=== PATIENT | male | born 1945 | race Caucasian/White ===

== ENCOUNTER 2022-02-28 14:36 | Outpatient (CLI) | payer MEDICARE, BC, SELFPAY ==
[2022-02-28 21:37] LABS: Lab Add On Test New Spec Needed
== END 2022-02-28 14:37 | disposition home or self-care (01) ==
LOC: NFLDREF 14:37
PROVIDERS: PCP Family Medicine; Visit Provider Family Medicine
DX: E78.5 Hyperlipidemia, unspecified (principal); I10 Essential (primary) hypertension; Z12.5 Encounter for screening for malignant neoplasm of prostate
CPT/HCPCS: 80048; 80061; 84153; 84460

== ENCOUNTER 2022-08-22 11:54 | Outpatient (CLI) | payer MEDICARE, BC, SELFPAY | END 2022-08-22 11:55 | disposition home or self-care (01) | LOC: NFLDREF 11:55 | PROVIDERS: PCP Family Medicine; Visit Provider Family Medicine | DX: I10 Essential (primary) hypertension (principal) | CPT/HCPCS: 80048 ==

== ENCOUNTER 2022-09-12 09:28 | Outpatient (CLI) | payer MEDICARE, BC, SELFPAY | END 2022-09-12 09:29 | disposition home or self-care (01) | LOC: RAD 09:29 | PROVIDERS: PCP Family Medicine; Visit Provider Family Medicine | DX: I35.0 Nonrheumatic aortic (valve) stenosis (principal) | CPT/HCPCS: 93306 ==

== ENCOUNTER 2022-10-31 14:37 | Outpatient (CLI) | payer MEDICARE, BC, SELFPAY | END 2022-10-31 14:38 | disposition home or self-care (01) | LOC: NFLDREF 14:38 | PROVIDERS: PCP Family Medicine; Visit Provider Family Medicine | DX: I10 Essential (primary) hypertension (principal); E11.9 Type 2 diabetes mellitus without complications; E78.5 Hyperlipidemia, unspecified | CPT/HCPCS: 80048 ==

== ENCOUNTER 2022-12-07 18:20 | Emergency (ER) | payer MEDICARE, BC, SELFPAY ==
[2022-12-07 18:42] VITALS: BP 179/71; PULSE 95; RESP 16; TEMP 36.6; O2SAT 95; BMI 31.1
[2022-12-07 19:22] VITALS: BP 150/127; PULSE 54; RESP 16; O2SAT 97
--- NOTE | 2022-12-07 19:38 | ED_ITS ---
HPI - General Adult General Time Seen by Provider: 19:38 Date Seen: 12/07/22 Chief complaint: Skin/Abscess/Foreign Body Stated complaint: Open wound on led, diabetic Time Seen by Provider: 12/07/22 19:17 Source: patient, RN notes reviewed and old records reviewed Mode of arrival: ambulatory Limitations: no limitations History of Present Illness HPI narrative: This 77-year-old male is coming to the ER prior to going to his sleep study this evening. He has noticed a lesion on his left lower extremity, maybe is been there since . They do think there is a little red spot that is developing inferior. Had been using some Neosporin on it but his told him to stop. It is not really hurting but he does have neuropathy. It maybe itches sometimes. He has not felt any flu symptoms, no fevers or chills, is not aware of any history of any MRSA. Patient is diabetic. He does not have a history of prior wounds of his lower extremities. Review of chart shows Cr in the low 2 range most recently. Related Data Home Medications Medication Instructions Recorded Confirmed aspirin 81 mg capsule 81 mg PO QDAY 09/17/21 12/07/22 blood sugar diagnostic (Accu-Chek 09/17/21 10/31/22 Guide test strips) blood-glucose meter (Accu-Chek 09/17/21 10/31/22 Guide Glucose Meter) cholecalciferol (vitamin D3) 25 25 mcg PO QDAY 09/17/21 12/07/22 mcg (1,000 unit) capsule nitroglycerin 0.4 mg sublingual 0.4 mg sublingual ONCE 09/17/21 10/31/22 tablet (Nitrostat) insulin aspart U-100 100 unit/mL 15 unit subcut TID 08/22/22 12/07/22 (3 mL) subcutaneous pen (Novolog FlexPen U-100 Insulin aspart) Previous Rx's Medication Instructions Recorded flash glucose scanning reader #30 ea 12/12/21 (FreeStyle Henok 2 [place]) flash glucose sensor (FreeStyle #6 ea 08/22/22 Henok 2 Sensor kit) insulin glargine 100 unit/mL (3 30 unit (0.3 mL) subcut QDAY #15 mL 11/12/22 mL) subcutaneous pen (Lantus Solostar U-100 Insulin) cephalexin 500 mg tablet 500 mg PO TID #20 tabs 12/07/22 Allergies Allergy/AdvReac Type Severity Reaction Status Date / Time lisinopril Allergy Mild Cough Verified 12/07/22 18:44 Review of Systems Narrative: As per HPI. PFSH PFS Medical History Aortic stenosis ?I35.0 - Nonrheumatic aortic (valve) stenosis (ICD-10) [place] of foot ?L84 - Corns and callosities (ICD-10) Light-headedness ?R42 - Dizziness and giddiness (ICD-10) Diabetic peripheral neuropathy ?E11.42 - Type 2 diabetes mellitus with diabetic polyneuropathy (ICD-10) Type 2 diabetes mellitus ?E11.9 - Type 2 diabetes mellitus without complications (ICD-10) Hypertension ?I10 - Essential (primary) hypertension (ICD-10) Hyperlipidemia ?E78.5 - Hyperlipidemia, unspecified (ICD-10) Bilateral primary osteoarthritis of knee ?M17.0 - Bilateral primary osteoarthritis of knee (ICD-10) Personal history of colonic polyps ?Z86.010 - Personal history of colonic polyps (ICD-10) CKD (chronic kidney disease) stage 3, GFR 30-59 ml/min ?N18.30 - Chronic kidney disease, stage 3 unspecified (ICD-10) Erectile dysfunction ?N52.9 - Male erectile dysfunction, unspecified (ICD-10) Social History Narrative: . 3 children and 9 grandchildren. Gets care at the [place]. nonsmoker. Smoking Status: Never smoker How often do you have a drink containing alcohol: monthly or less AUDIT-C Alcohol total score: 1 Non-prescribed substance use: denies use Little interest or pleasure in doing things: not at all Feeling down, depressed, or hopeless: not at all Exam Const: Vital Signs, click to edit/add: Vital Signs - 24 hr 12/07/22 18:42 12/07/22 19:22 Temperature 97.8 F Pulse Rate [Left P ulse Oximeter] 95 54 L Respiratory Rate 16 16 Blood Pressure [Ri ght Upper Arm] 179/71 H 150/127 H Pulse Oximetry 95 97 Oxygen Delivery Me thod Room Air Room Air Very pleasant 77-year-old male ambulatory into the ED of his own accord. Able to speak in complete sentences. Face atraumatic. CV regular rate and rhythm, harsh systolic murmur consistent with his aortic stenosis, normal S1-S2, no S3- S4. He has left greater than right lower extremity edema with the left being about 2+ pitting pretibial early. Along the anterior aspect of the lower left extremity there is a purplish maybe about nickel sized area in the center that looks like it might eventually denuded to leave an ulceration. Around this there is an erythematous area and some satellite stippling that goes out. The seem to be petechial/vascular changes, they are not blanchable in the skin. Inferior to this there is a little small erythematous nodule that almost looks like it has a punctate white spot in the center, almost like maybe a satellite lesion. He does have some milky type fluid that I can express around the center wound. This was cultured. There is edema but not more so than the surrounding tissue. He is not tender when I palpate, no fluctuance. Documenting provider has reviewed patient's vital signs: yes Course Course ED Course: Reviewed with patient that I do wonder if he is starting to develop some venous stasis dermatitis with ulcer developing here. He does not remember if there might have been a bug bite or possibly some trauma, it is unclear. In any event, will culture this wound, cover with antibiotics until we have wound culture back. Will put a referral into the wound clinic for him. Vital Signs Vital signs: Initial Vital Signs Temperature 97.8 F 12/07/22 18:42 Temperature Source Temporal Artery Scan 12/07/22 18:42 Pulse Rate 95 12/07/22 18:42 Respiratory Rate 16 12/07/22 18:42 Blood Pressure 179/71 H 12/07/22 18:42 Blood Pressure Mean 107 H 12/07/22 18:42 Blood Pressure Position Sitting 12/07/22 18:42 Pulse Oximetry 95 12/07/22 18:42 Oxygen Delivery Method Room Air 12/07/22 18:42 Vital Signs Temperature 97.8 F 12/07/22 18:42 Pulse Rate 95 12/07/22 18:42 Respiratory Rate 16 12/07/22 18:42 Blood Pressure 179/71 H 12/07/22 18:42 Pulse Oximetry 95 12/07/22 18:42 Oxygen Delivery Method Room Air 12/07/22 18:42 Temperature 97.8 F 12/07/22 18:42 Pulse Rate 54 L 12/07/22 19:22 Respiratory Rate 16 12/07/22 19:22 Blood Pressure 150/127 H 12/07/22 19:22 Pulse Oximetry 97 12/07/22 19:22 Oxygen Delivery Method Room Air 12/07/22 19:22 Discharge Plan Discharge Clinical Impression: Wound of left lower extremity Patient Disposition: Home, Self-Care Condition: Stable Instructions: Stasis Dermatitis (ED), Acute Wounds (ED) Additional Instructions: We will start Keflex while we await the wound culture result. 1st dose was given tonight, prescription sent in for pharmacy for further dosing. Recommend light gauze dressing, may need to use a nonstick pad underneath the gauze. Wound referral has been sent, recommend that you get into wound clinic as soon as possible. I do believe that this wound likely represents of venous stasis ulcer that is developing. There certainly could be concomitant infection and we will cover for this. I also recommend that you follow-up with your primary care provider this week, if appropriate, increased management for swelling may help with this condition. Try to elevate this leg as much as possible when resting, do not recommend leaving it dependent for any length of time right now. If there are concerns for this wound worsening, infection that is increasing or other concerns, please seek re-evaluation. Activity Level: Activity as Tolerated Prescriptions: New cephalexin 500 mg tablet 500 mg PO TID Qty: 20 0RF No Action (DME) FreeStyle Henok 2 Sensor Kit See Rx Instructions .Route Qty: 6 1RF Rx Instructions: Change every 2 weeks insulin glargine [Lantus Solostar U-100 Insulin] 100 unit/mL (3 mL) insulin pen 30 unit subcut QDAY Qty: 15 1RF (DME) Accu-Chek Guide test strips Strip See Rx Instructions .Route Rx Instructions: As directed (DME) blood-glucose meter [Accu-Chek [place] Glucose Meter[place] [facility] [place] .Route Rx Instructions: As directed nitroglycerin [Nitrostat] 0.4 mg tablet, sublingual 0.4 mg sublingual ONCE Rx Instructions: as a single dose; administer 5-10 minutes before situation known to precipitate angina attack aspirin 81 mg capsule 81 mg PO QDAY cholecalciferol (vitamin D3) 25 mcg (1,000 unit) capsule 25 mcg PO QDAY (DME) FreeStyle Henok 2 [place] Misc See Rx Instructions .Route Qty: 30 1RF Rx Instructions: As directed insulin aspart U-100 [Novolog FlexPen U-100 Insulin] 100 unit/mL (3 mL) insulin pen 15 unit subcut TID Follow Up/Referrals: Dat Arredondo MD [Primary Care Provider] - Stand Alone Forms: MyHealth Info Instructions
[2022-12-07] MEDS: cephALEXin 500 MG CAPSULE PO (19:54)
--- NOTE | 2022-12-07 20:15 | PC.NURSE ---
DC accompanied by , referral to wound center given to patient. no further questions from patients or .
== END 2022-12-07 20:13 | disposition home or self-care (01) ==
LOC: ED 19:57
PROVIDERS: Emergency Provider Family Medicine; PCP Family Medicine
DX: S81.802A Unspecified open wound, left lower leg, initial encounter (principal)
CPT/HCPCS: 87070; 99283; A9270

== ENCOUNTER 2022-12-10 12:39 | Outpatient (CLI) | payer MEDICARE, BC, SELFPAY | END 2022-12-10 12:40 | disposition home or self-care (01) | LOC: WOUND 12:40 | PROVIDERS: PCP Family Medicine; Visit Provider Family Medicine | DX: I87.312 Chronic venous hypertension (idiopathic) with ulcer of left lower extremity (principal); L97.822 Non-pressure chronic ulcer of other part of left lower leg with fat layer exposed; E11.21 Type 2 diabetes mellitus with diabetic nephropathy; Z79.4 Long term (current) use of insulin | CPT/HCPCS: 11042; 99213 ==

== ENCOUNTER 2022-12-16 19:42 | Outpatient (CLI) | payer MEDICARE, BC, SELFPAY ==
--- NOTE | 2022-12-23 11:46 | W.PM.SLEEP ---
Sleep Study Details Details Interpreting Provider: Meeta Date of Sleep Study: 12/16/22 Sleep Study Details: STUDY TYPE:? Home unattended ? BMI:? 32.1 ORDERING PROVIDER:? Maria Elena INDICATION:? Concerns about sleep apnea ? SLEEP SUMMARY:? 420 minutes monitored RESPIRATORY SUMMARY:? AHI 8.9, supine 11.9, left lateral 7.8 Low oxygen 89 0.1% of study oxygen less than 90% Snoring 0.3% PERIODIC LIMB MOVEMENTS OF SLEEP:? Not recorded during home study CARDIAC:? Range 42-58, mean 45.5 IMPRESSION:? 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 Baseline low heart rate RECOMMENDATION: Further cardiac evaluation may be indicated due to low heart rate. Treatment options for the sleep apnea include CPAP AutoSet 4-17, dental appliance and/or airway expansion surge
== END 2022-12-16 19:43 | disposition home or self-care (01) ==
LOC: SLEEP 19:42
PROVIDERS: PCP Family Medicine; Visit Provider Family Medicine
DX: G47.33 Obstructive sleep apnea (adult) (pediatric) (principal)
CPT/HCPCS: 95806

== ENCOUNTER 2022-12-17 12:46 | Outpatient (CLI) | payer MEDICARE, BC, SELFPAY | END 2022-12-17 12:47 | disposition home or self-care (01) | LOC: WOUND 12:46 | PROVIDERS: PCP Family Medicine; Visit Provider Surgery | DX: I87.312 Chronic venous hypertension (idiopathic) with ulcer of left lower extremity (principal); L97.822 Non-pressure chronic ulcer of other part of left lower leg with fat layer exposed; E11.21 Type 2 diabetes mellitus with diabetic nephropathy; Z79.4 Long term (current) use of insulin | CPT/HCPCS: 99212 ==

== ENCOUNTER 2023-05-11 15:21 | Outpatient (CLI) | payer MEDICARE, BC, SELFPAY | END 2023-05-11 15:22 | disposition home or self-care (01) | LOC: NFLDREF 15:22 | PROVIDERS: PCP Family Medicine; Visit Provider Internal Medicine | DX: E11.42 Type 2 diabetes mellitus with diabetic polyneuropathy (principal); N18.30 Chronic kidney disease, stage 3 unspecified | CPT/HCPCS: 80048 ==

== ENCOUNTER 2023-09-23 13:22 | Outpatient (CLI) | payer MEDICARE, BC, SELFPAY ==
--- OUTSIDE RECORDS SUMMARY | 2023-09-23 13:29 | XMS_ITS | Continuity of Care Document ---
Author Name [facility] Organization [facility] Care Team Providers Care Windows Server Administrator Name Role Phone [facility] Unavailable Unavailable Problems Combined list of problems from Department of Defense and Veterans Affairs facilities. It does not include entries that were removed or entered in error. Problem Status Onset Date Problem Type Date of Resolution Comments Source Exposure to potentially hazardous substance ([facility] [id number]) Active 024 Condition May 21, 2023 Entered By: BEBA GALE Comment: [facility] Documentation Initiative [facility] Chronic kidney disease stage 3 Active Condition Feb 20, 2014 Entered By: MOISE MONGE Comment: creatinine 1.81 in 01/2014 [facility] Colonic Polyps Active Condition Feb 132011 Entered By: MOISE MONGE Comment: Last colonoscopy with no polyps: 2014 Entered By: MOISE MONGE Comment: colonoscopy 08/28: no polyps [facility] Coronary artery disease (SNOMED CT 69063668) Active Condition Feb 27, 2012 Entered By: MOISE MONGE Comment: coronary artery stent: 2008 [facility] Diabetes mellitus (SNOMED CT 06481008) Active Condition Feb 27, 2012 Entered By: MOISE MONGE Comment: Dx: 1982 [facility] Essential hypertension (SNOMED CT 22812536) Active Condition [facility] Hypercholesterolemia (SNOMED CT 18046904) Active Condition [facility] Obesity Active Condition [facility] Rheumatic Fever Inactive Condition 04/01/2017 Feb 27, 2012 Entered By: MOISE MONGE Comment: age 5: no rheumatic heart disease [facility] Diagnosis: ICD-10-CM Z00.01 Encounter for general adult medical exam w abnormal findings Active Diagnosis [facility] Diagnosis: ICD-10-CM H90.3 Sensorineural hearing loss, bilateral Active Diagnosis [facility] Diagnosis: ICD-10-CM E11.9 Type 2 diabetes mellitus without complications Active Diagnosis [facility] Medications Combined list of outpatient medications from Department of Defense and Veterans Affairs facilities.Medications provided include 1) outpatient medications from the last 15 months, and 2) patient-reported medications. Medication Details Route Status Patient Instructions Prescription Expires Prescription Number Last Dispense Date Ordering Provider Order Date Order Qty Source ASPIRIN 81MG TAB,EC ASPIRIN 81MG TAB,EC Non-VA TAKE ONE TABLET BY MOUTH EVERY DAY Feb 27, 2012 Non-[facility] Document ed by: SHY MONGE Document ed at: [facility] ORAL ACTIVE SHY MONGE 2011 [facility] ATORVASTATI N CA 20MG TAB ATORVAST ATIN CA 20MG TAB TAKE ONE TABLET BY MOUTH EVERY DAY May 29, 2022 90 Aug 26, 2022 [id number] Jun 28, [address] [facility] ORAL 08/26/2022 [id number] 3 Gwyn PAN P 2022 90 [facility] ATORVASTATI N CA 40MG TAB ATORVAST ATIN CA 40MG TAB Disconti nued TAKE ONE-HALF TABLET BY MOUTH EVERY DAY May 28, 2022 45 Aug 26, 2022 [id number] Jun 28, 2022 MAYELA PAN [facility] ORAL DISCONT INUED (EDIT) 08/26/2022 [id number] 3 Gwyn PAN P 2022 45 [facility] CHLORTHALID ONE 25MG TAB CHLORTHA LIDONE 25MG TAB TAKE ONE TABLET BY MOUTH EVERY MORNING FOR BLOOD PRESSURE Oct 01, 2022 90 Jan 02, 2023 [id number] K Oct 06, 2022 MAYELA PAN [facility] ORAL 01/02/2023 [id number] 3 Gwyn PAN P 2022 90 [facility] CHOLECALCIF DOC 25MCG (1,000UNIT) TAB CHOLECAL CIFEROL 25MCG (1,000UN IT) TAB Non-VA TAKE ONE TABLET BY MOUTH EVERY DAY Feb 27, 2012 Non-VA Document ed by: SHY MONGE Document ed at: [facility] ORAL ACTIVE SHY MONGE 2011 [facility] FISH OIL 1000MG (500MG DHA/EPA) CAP,ORAL FISH OIL 1000MG (500MG DHA/EPA) CAP,ORAL Non-VA TAKE 1 CAPSULE BY MOUTH EVERY DAY Feb 20, 2014 Non-VA Document ed by: SHY MONGE Document ed at: [facility] ORAL ACTIVE SHY MONGE 2013 [facility] INSULIN,ASP ART,HUMAN (EQV-NOVOLO G) 100 UNIT/ML,FLE XPEN,3ML INSULIN, ASPART,H UMAN (EQV-NOV OLOG) 100 UNIT/ML, FLEXPEN, 3ML INJECT 15 UNITS UNDER THE SKIN WITH EACH MEAL FOR DIABETES -INJECT IMMEDIAT CARMINA BEFORE MEAL -REFRIGE RATE FOR DIABETES Jun 25, 2022 15 Jun 26, 2023 [id number] May 29, 2023 MAYELA PAN [facility] SUBCUT ANEOUS 06/26/2023 [id number] 4 Gwyn PAN 2022 15 [facility] INSULIN,GLA RGINE,HUMAN 100 UNIT/ML INJ,SOLOSTA R,3ML INSULIN, GLARGINE ,HUMAN 100 UNIT/ML INJ,SOLO STAR,3ML Disconti nued INJECT 30 UNITS UNDER THE SKIN TWICE A DAY FOR DIABETES FOR DIABETES May 22, 2023 15 May 22, 2024 [id number] May 26, 2023 CASSIDY STUART [facility] SUBCUT ANEOUS DISCONT INUED (EDIT) 05/22/2024 [id number] 4 CASSIDY SILVEIRA 2023 15 [facility] INSULIN,GLA RGINE,HUMAN 100 UNIT/ML INJ,SOLOSTA R,3ML INSULIN, GLARGINE ,HUMAN 100 UNIT/ML INJ,SOLO STAR,3ML Disconti nued INJECT 20 UNITS UNDER THE SKIN TWICE A DAY FOR DIABETES FOR DIABETES Jun 25, 2022 15 Jun 26, 2023 [id number] Jun 30, 2022 MAYELA PAN [facility] SUBCUT ANEOUS DISCONT INUED (EDIT) 06/26/2023 [id number] Gwny PAN 2022 15 [facility] INSULIN,GLA RGINE-YFGN 100UNIT/ML INJ PEN,3ML INSULIN, GLARGINE -YFGN 100UNIT/ ML INJ PEN,3ML Active INJECT 30 UNITS UNDER THE SKIN TWICE A DAY FOR DIABETES FOR DIABETES May 26, 2023 15 May 26, 2024 [id number] May 26, 2023 CASSIDY STUART [facility] SUBCUT ANEOUS ACTIVE 05/26/2024 [id number] CASSIDY SILVEIRA 2023 15 [facility] MULTIVITAMI NS CAP/TAB MULTIVIT AMINS CAP/TAB Non-VA TAKE ONE TABLET BY MOUTH EVERY DAY Feb 27, 2012 Non-VA Document ed by: SHY MONGE Document ed at: [facility] ORAL ACTIVE SHY MONGE 2011 [facility] NITROGLYCER IN 0.4MG TAB,SUBLING UAL NITROGLY CERIN 0.4MG TAB,SUBL INGUAL Non-VA DISSOLVE ONE TABLET UNDER THE TONGUE PRN Feb 27, 2012 Non-VA Document ed by: SHY MONGE Document ed at: [facility] SUBLIN GUAL ACTIVE SHY MONGE 2011 [facility] Allergies, Adverse Reactions, Alerts Combined list of allergies from Department of Defense and Veterans Affairs facilities. It does not include entries that were removed or entered in error. Substance Category Reaction Severity Reaction type Status Date Reported Comments Source LISINOPRIL Propensity to adverse reactions to drug (finding) Cough active 2 [facility] Immunizations Combined list of available immunizations from the Department of Defense and Veterans Affairs facilities. Immunization Series Date Given Administered By Site Reaction Lot Number CVX Code Drug Panel Laminator Status Comments Source INFLUENZA, HIGH-DOSE, QUADRIVALENT 2021 197 complet ed [facility] INFLUENZA, UNSPECIFIED FORMULATION 2021 88 complet ed [facility] COVID-19 (PFIZER), MRNA, LNP-S, PF, 30 MCG/0.3 ML DOSE 3 2020 208 complet ed [facility] INFLUENZA, INJECTABLE, QUADRIVALENT, PRESERVATIVE FREE 2020 150 complet ed [facility] COVID-19 (PFIZER), MRNA, LNP-S, PF, 30 MCG/0.3 ML DOSE 2 2020 208 complet ed PFR; [id number]; 1 [facility] COVID-19 (PFIZER), MRNA, LNP-S, PF, 30 MCG/0.3 ML DOSE 1 2020 208 complet ed PFR; [id number]; 1 [facility] INFLUENZA, HIGH-DOSE, QUADRIVALENT 2019 197 complet ed [facility] INFLUENZA, UNSPECIFIED FORMULATION 2019 88 complet ed [facility] INFLUENZA, RECOMBINANT, QUADRIVALENT, INJECTABLE, PRESERVATIVE FREE 2018 185 complet ed [facility] INFLUENZA, HIGH DOSE SEASONAL 2017 135 complet ed [facility] INFLUENZA, HIGH DOSE SEASONAL 2016 135 complet ed [facility] INFLUENZA, HIGH DOSE SEASONAL 2016 135 complet ed [facility] INFLUENZA, HIGH DOSE SEASONAL 2015 135 complet ed [facility] INFLUENZA, SEASONAL, INJECTABLE 2015 141 complet ed [facility] PNEUMOCOCCAL CONJUGATE PCV 13 2015 133 complet ed [facility] PNEUMOCOCCAL CONJUGATE PCV 13 2014 133 complet ed [facility] INFLUENZA, HIGH DOSE SEASONAL 2014 135 complet ed [facility] PNEUMOCOCCAL POLYSACCHARID E PPV23 2014 33 complet ed [facility] INFLUENZA, HIGH DOSE SEASONAL 2014 135 complet ed [facility] INFLUENZA, HIGH DOSE SEASONAL 2013 135 complet ed [facility] INFLUENZA, UNSPECIFIED FORMULATION 2013 88 complet ed [facility] PNEUMOCOCCAL POLYSACCHARID E PPV23 2013 33 complet ed [facility] TDAP 2013 115 complet ed [facility] INFLUENZA, UNSPECIFIED FORMULATION 2012 88 complet ed [facility] PNEUMOCOCCAL POLYSACCHARID E PPV23 2012 33 complet ed [facility] INFLUENZA, SEASONAL, INJECTABLE 2011 141 complet ed [facility] INFLUENZA, UNSPECIFIED FORMULATION 2011 88 complet ed [facility] TD(ADULT) UNSPECIFIED FORMULATION 2011 139 complet ed [facility] TDAP 2011 115 complet ed [facility] INFLUENZA, SEASONAL, INJECTABLE 2010 141 complet ed [facility] INFLUENZA, SEASONAL, INJECTABLE 2009 141 complet ed [facility] HEP A, ADULT 2009 52 complet ed [facility] NOVEL INFLUENZA-H1N 1-09, ALL FORMULATIONS 2008 128 complet ed [facility] HEP A, ADULT 2008 52 complet ed [facility] ZOSTER LIVE 2008 121 complet ed [facility] INFLUENZA, SEASONAL, INJECTABLE 2007 141 complet ed [facility] ZOSTER LIVE 2007 121 complet ed [facility] INFLUENZA, SEASONAL, INJECTABLE 2006 141 complet ed [facility] PNEUMOCOCCAL POLYSACCHARID E PPV23 2006 33 complet ed [facility] TD (ADULT), 5 LF TETANUS TOXOID, PRESERVATIVE FREE, ADSORBED 2005 113 complet ed [facility] INFLUENZA, SEASONAL, INJECTABLE 2003 141 complet ed [facility] INFLUENZA, SEASONAL, INJECTABLE 2002 141 complet ed [facility] Results Combined list of recent chemistry, hematology and other laboratory results from Department of Defense and Veterans Affairs, ranging from 15 months to all on record, depending upon the facility. Order Name Results Value Reference Range Date Interpretation Specimen Comments Source BASIC METABOLIC PANEL+MG CREATININE [MASS/VOLUM E] IN SERUM OR PLASMA 2.1 mg/dL 0.7 - 1.2 07/05 H Specimen Type: PLASMA No comment entered. Ordering Provider: KAN BRAVO Report Released Date/Time: Jul 06, 2023 03:59 PM Reporting Lab: [facility] [address] Performing Lab: [facility] [address] [facility] BASIC METABOLIC PANEL+MG UREA NITROGEN [MASS/VOLUM E] IN SERUM OR PLASMA 38 mg/dL 8 - 26 07/05 H Specimen Type: PLASMA No comment entered. Ordering Provider: KAN BRAVO Report Released Date/Time: Jul 06, 2023 03:59 PM Reporting Lab: [facility] [address] Performing Lab: [facility] [address] [place] [facility] BASIC METABOLIC PANEL+MG GLUCOSE [MASS/VOLUM E] IN SERUM OR PLASMA 157 mg/dL 70 - 100 07/05 H Specimen Type: PLASMA No comment entered. Ordering Provider: KAN BRAVO Report Released Date/Time: Jul 06, 2023 03:59 PM Reporting Lab: [facility] [address] Performing Lab: [facility] [address] [place] [facility] BASIC METABOLIC PANEL+MG SODIUM [MOLES/VOLU ME] IN SERUM OR PLASMA 139 mmol/L 136 - 145 07/05 Specimen Type: PLASMA No comment entered. Ordering Provider: KAN BRAVO Report Released Date/Time: Jul 06, 2023 03:59 PM Reporting Lab: [facility] [address] Performing Lab: [facility] [address] [place] [facility] BASIC METABOLIC PANEL+MG POTASSIUM [MOLES/VOLU ME] IN SERUM OR PLASMA 5.1 mmol/L 3.5 - 5.1 07/05 Specimen Type: PLASMA No comment entered. Ordering Provider: KAN BRAVO R Report Released Date/Time: Jul 06, 2023 03:59 PM Reporting Lab: [facility] [address] Performing Lab: [facility] [address] [place] [facility] BASIC METABOLIC PANEL+MG CHLORIDE [MOLES/VOLU ME] IN SERUM OR PLASMA 106 mmol/L 98 - 107 07/05 Specimen Type: PLASMA No comment entered. Ordering Provider: KAN BRAVO R Report Released Date/Time: Jul 06, 2023 03:59 PM Reporting Lab: [facility] [address] Performing Lab: [facility] [address] [place] [facility] BASIC METABOLIC PANEL+MG CARBON DIOXIDE, TOTAL [MOLES/VOLU ME] IN SERUM OR PLASMA 27 mmol/L 22 - 29 07/05 Specimen Type: PLASMA No comment entered. Ordering Provider: KAN BRAVO Report Released Date/Time: Jul 06, 2023 03:59 PM Reporting Lab: [facility] [address] Performing Lab: [facility] [address] [place] [facility] BASIC METABOLIC PANEL+MG CALCIUM [MASS/VOLUM E] IN SERUM OR PLASMA 9.4 mg/dL 8.4 - 10.2 07/05 Specimen Type: PLASMA No comment entered. Ordering Provider: KAN BRAVO Report Released Date/Time: Jul 06, 2023 03:59 PM Reporting Lab: [facility] [address] Performing Lab: [facility] [address] [place] [facility] BASIC METABOLIC PANEL+MG MAGNESIUM [MASS/VOLUM E] IN SERUM OR PLASMA 1.9 mg/dL 1.6 - 2.6 07/05 Specimen Type: PLASMA No comment entered. Ordering Provider: KAN BRAVO Report Released Date/Time: Jul 06, 2023 03:59 PM Reporting Lab: [facility] [address] Performing Lab: [facility] [address] [place] [facility] BASIC METABOLIC PANEL+MG ANION GAP IN SERUM OR PLASMA 6 mmol/L 5 - 15 07/05 Specimen Type: PLASMA No comment entered. Ordering Provider: KAN BRAVO Report Released Date/Time: Jul 06, 2023 03:59 PM Reporting Lab: [facility] [address] Performing Lab: [facility] [address] [place] [facility] BASIC METABOLIC PANEL+MG GLOMERULAR FILTRATION RATE/1.73 SQ M.PREDICTED [VOLUME RATE/AREA] IN SERUM, PLASMA OR BLOOD BY CREATININE- BASED FORMULA (CKD-EPI 2020) 32 60 07/05 L Specimen Type: PLASMA No comment entered. Ordering Provider: KAN BRAVO Report Released Date/Time: Jul 06, 2023 03:59 PM Reporting Lab: [facility] [address] Performing Lab: [facility] [address] [place] [facility] HEMOGLOBI N A1C HEMOGLOBIN A1C/HEMOGLO BIN.TOTAL IN BLOOD 6.8 4.0 - 6.0 07/05 H Specimen Type: BLOOD Comment: Values obtained from A1C measurement s can vary. For typical A1C assays, a reported value of 7.0 could actually be between 6.7 and 7.3 if measured by a reference method. A reported value of 9.0 could actually be between 8.7 and 9.3. Ref: http://www. ngsp.org/[place] Pdata.asp Ordering Provider: KAN BRAVO Report Released Date/Time: Jul 06, 2023 03:59 PM Reporting Lab: [facility] [address] Performing Lab: [facility] [address] [facility] Vital Signs Combined list of inpatient and outpatient Vital Signs from Department of Defense and Veterans Affairs, ranging from 12 months to all on record, depending upon the facility. Vital Sign Value Date Comments Source Encounters Combined list of: 1) Encounters from Department of Veterans Affairs facilities going back up to thelast 18 months. 2) Encounters from the Department of Defense facilities going back up to 280 months. Location Location Details Encounter Type Encounter Number Reason For Visit Attending Provider ADM Date DC Date Status Disposition Source [facility] EAR IMPRESSION [id number] Diagnos is: ICD-10- CM H90.3 Sensori neural hearing loss, bilater al
DANDY PETERSON 06/07 [facility] Outpatient Encounter [id number] 06/25 [facility] OFFICE O/P EST LOW 20-29 MIN [id number] Diagnos is: ICD-10- CM E11.9 Type 2 diabete s mellitu s without complic ations< br/> Lauren KATZ 06/25 [facility] CONFORMITY EVALUATION [id number] Diagnos is: ICD-10- CM H90.3 Sensori neural hearing loss, bilater al
NICHOLASDANDY Pascal 07/23 [facility] [place] [facility] Outpatient Encounter [id number] 03/16 [place] [facility] [place] [facility] Outpatient Encounter [id number] 05/12 [place] [facility] [place] [facility] Outpatient Encounter [id number] 05/12 [place] [facility] [place] [facility] Outpatient Encounter [id number] 05/20 [facility] [place] [facility] OFFICE O/P EST HI 40 MIN [id number] Diagnos is: ICD-10- CM Z00.01 Encount er for general adult medical exam w abnorma l finding s
Dion MCLAUGHLIN 07/05 [facility] Social History Combined list of available smoking, tobacco, and other social history from Department of Defense and [facility] Affairs facilities. Social History Type Response Date Comment Sour e Tobacco smoking status ARIS ME-TOBACCO NEVER USED 07/06/2023 GERRI Ashley [facility] History of tobacco use ME-TOBACCO NEVER USED 06/25/2022 [facility] History of tobacco use ME-TOBACCO NEVER USED 06/11/2020 [facility] History of tobacco use ME-TOBACCO NEVER USED 05/31/2018 [facility] History of tobacco use LIFETIME NON-TOBA SALES ACCOUNT LEADER USER 04/01/2017 [facility] History of tobacco use LIFETIME NON-TOBA SALES ACCOUNT LEADER USER 03/05/2016 [facility] History of tobacco use LIFETIME NON-TOBA SALES ACCOUNT LEADER USER 02/26/2015 [facility] History of tobacco use LIFETIME NON-TOBA SALES ACCOUNT LEADER USER 02/20/2014 [facility] History of tobacco use LIFETIME NON-TOBA SALES ACCOUNT LEADER USER 02/27/2012 [facility]
--- OUTSIDE RECORDS SUMMARY | 2023-09-23 13:30 | XMS_ITS | Clinical Summary ---
Author Organization [facility] Address [place], [place] [address] Care Team Providers Care Vice President Of Customer Service Name Role Phone Dat Arredondo MD Primary Care Provider + Allergies Active Allergy Reactions Criticality Noted Date Comments Lisinopril Cough 10/22/2006 Tea Tree Oil Contact Dermatitis 06/17/2012 Blistering Medications Medication Sig Dispensed Refills Start Date End Date Status MULTIVITAMIN CAP 1 tab daily 0 Active ASPIRIN 81 MG TAB, DELAYED RELEASE take 1 tablet (81 mg) by oral route once daily 0 10/13/2007 Active cholecalciferol (VITAMIN D) 1,000 unit capsule Take 1 capsule by mouth. qod 0 05/02/2010 Active omega-3 fatty acids-vitamin E (FISH OIL) 1,000 mg capIndications:Mixed hyperlipidemia Take 1 capsule by mouth once daily. 60 capsule 0 11/05/2012 Active insulin syringe-needle u-100 (BD INSULIN SYRINGE UF) 1 mL 30 x 1/2Indications:Type II or unspecified type diabetes mellitus without mention of complication, not stated as uncontrolled For administering insulin at home. 4 box 5 08/05/2013 Active blood sugar diagnostic (BLOOD GLUCOSE TEST) stripIndications:Typ e II or unspecified type diabetes mellitus without mention of complication, not stated as uncontrolled Dispense test strips covered by the patient insurance. Test 1 times per day. 0 01/26/2014 Active HYDROcodone-acetamin ophen, 5-325 mg, (NORCO) per tablet Take 1-2 tablets by mouth every 4 hours if needed for Pain. Max acetaminophen dose: 4000mg in 24 hrs. 20 tablet 0 2014 Active simvastatin (ZOCOR) 40 mg tabletIndications:Mi xed hyperlipidemia Take 1 tablet by mouth once daily. 93 tablet 3 09/08/2014 Active nitroglycerin (NITROSTAT) 0.4 mg sublingual tabletIndications:Co ronary atherosclerosis of unspecified type of vessel, upper sioux or graft Place 1 tablet under the tongue every 5 minutes if needed. 1 Bottle 3 09/08/2014 Active insulin glargine (LANTUS) 100 unit/mL injectionIndications :Type II or unspecified type diabetes mellitus without mention of complication, not stated as uncontrolled Inject 35 Units subcutaneous 2 times daily at 8 AM and 8 PM. 10 Vial 11 09/08/2014 Active insulin aspart (NOVOLOG) 100 unit/mL injectionIndications :Type II or unspecified type diabetes mellitus without mention of complication, not stated as uncontrolled Inject 25 Units subcutaneous 3 times daily before meals. 40u in am, 50u at noon, 60u in the fatemeh 10 Vial 11 09/08/2014 Active losartan (COZAAR) 100 mg tabletIndications:Un specified essential hypertension Take 1 tablet by mouth once daily. 93 tablet 3 09/08/2014 Active chlorthalidone (HYGROTON) 25 mg tabletIndications:Un specified essential hypertension Take 1 tablet by mouth every morning. 93 tablet 3 09/08/2014 Active Active Problems Problem Noted Date Diagnosed Date Diabetes mellitus, type 2 01/26/2014 Erectile dysfunction 01/26/2014 Hyperlipidemia 01/26/2014 CKD (chronic kidney disease) stage 3, GFR 30-59 ml/min 11/05/2012 Obesity, unspecified 01/03/2011 Skin tags 05/02/2010 Personal history of colonic polyps 12/08/2008 Overview: Colonoscopy 11/2008 normal repeat in 5 years Colonoscopy 05/2014 polyp repeat in 5 years Coronary atherosclerosis of unspecified type of vessel, upper sioux or graft 01/14/2007 Overview: 01/13/2007 Successful stenting of the mid LAD with TAXUS HAIM recommend Plavix for 2 years Unspecified essential hypertension 10/22/2006 Resolved Problems Problem Noted Date Diagnosed Date Resolved Date Lipoma of other skin and subcutaneous tissue 1 11/05/2012 Morbid obesity 01/13/2007 01/03/2011 Family history of ischemic heart disease 01/13/2007 01/03/2011 Overview: Father DC Routine general medical exam ination at a health care facility 12/22/2006 09/19/2010 Overview: colonoscopy 07/2005 Recheck 3 yrs Mixed hyperlipidemia 12/22/2006 014 Impotence of organic origin 12/22/2006 01/26/2014 DIABETES 02/04/2002 01/26/2014 Overview: Dx 1981 Immunizations Name Administration Dates Next Due AMB Influenza, IIV3 (Age >=3 years)(Flu Clinic Only) 12/09/2011,01/04/2008 Amb Influenza, Inact (High-d ose) (Flu Clinic Only) 01/16/2014 Hepatitis A (Adult) 07/26/2009,08/04/2008 Influenza A (H1N1), Inactiva huy (Age >=3 Years) 03/08/2009 Influenza, IIV3 (Age >=3 years) 12/24/19 11,12/31/2009,12/22/2006,2005 Pneumococcal Poly,23-Valent (Pneumovax) 08/05/2013,12/22/2006 Td (Age >=7 Years) 07/15/2005 Tdap 08/05/2013 Zoster (Zostavax-ZVL, live) 07/13/2008 Family History Medical History Relation Name Comments Heart Disease Father Hypertension Father Cancer-breast Mother Psychiatric illness Sister 2 Schizoph shiloh Relation Name Status Comments Father Mother Sister 1 Alive Sister 2 Social History Tobacco Use Types Packs/Day Years Used Date Smoking Tobacco: Never Smokeless Tobacco: Never Tobacco Cessation:Counseling Given: Yes Alcohol Use Standard Drinks/Week Comments Yes 0 (1 standard drink = 0.6 oz pur e alcohol) 1 drink per month Social Connections Answer Date Recorded Frequency of Communication with Friends and Fami ly Not on file 03/16/2021 Financial Resource Strain Answer Date R ecorded Difficulty of Paying Living Expenses Not on file 03/16/2021 Difficulty of Paying Living Expenses Not on file 03/16/2021 Sex and Gender Information Value Date Recorded Sex Assigned at Not on file Gender Identity Not on file Sexual Orientation Not on file Obstetrics History Last Filed Vital Signs Vital Sign Reading Time Taken Comments Blood Pressure 120/72 10/01/2022 10:34 AM CDT Pulse 55 10/01/2022 10:34 AM CDT Temperature 36.7 ??C (98 ??F) 09/08/2014 9:26 AM CDT Respiratory Rate 16 01/14/2007 8:00 AM CDT Oxygen Saturation 96% 10/01/2022 10:34 AM CDT Inhaled Oxygen Concentration - - Weight 132.7 kg (292 lb 8 oz) 09/08/2014 9:26 AM CDT Height 190.5 cm (6' 3) 2014 3:12 PM [employer] Body Mass Index 36.56 2014 3:12 PM [employer] Plan of Treatment Health Maintenance Due Date Last Done Comments Depression screening for age 12+ 1959 BMI (ht and wt on same day) for age 18+ 1965 Hepatitis C screening for ag e 18-79 1965 Zoster (shingles) series for age 50+ (2 of 3) 09/07/2008 07/13/2008 Medicare Wellness for age 65+ 2012 Pneumococcal series for age 65+ (2 of 2 - PCV) 08/05/2014 08/05/2013, 12/22/2006 COVID-19 vaccine series (2 - 2022- season) 2022 01/31/2021 Tetanus booster 08/06/2023 08/05/2013, 07/15/2005 Influenza for age 65+ 11/15/2023 01/16/2014 , 12/09/2011, 12/23/2010, Additional history exists Tdap Completed 08/05/2013 Advance Directives * Full Code (Latest Code Status on File) Date Activated Date Inactivated Comments 01/13/2007 9:17 AM 01/14/2007 1:21 PM Care Teams Vice President Of Customer Service Relationship Specialty Start Date End Date Dat Arredondo MD [address] [place] [address] PCP - General Family Practice 12/20/20
== END 2023-09-23 13:23 | disposition home or self-care (01) ==
LOC: NFLDREF 13:27
PROVIDERS: PCP Family Medicine; Visit Provider Internal Medicine
DX: I10 Essential (primary) hypertension (principal); R53.1 Weakness
CPT/HCPCS: 80048

== ENCOUNTER 2023-12-21 08:30 | Outpatient (CLI) | payer MEDICARE, BC, SELFPAY ==
--- OUTSIDE RECORDS SUMMARY | 2023-12-21 08:34 | XMS_ITS | Encounter Summary ---
Author Name [facility] [place] [facility] [place] [facility] [place] Address [address] [place] [address] Care Team Providers Care Gearman Name Role Phone CASSIDY SILVEIRA Primary Care Provider Unavailab CLAY Garcia Unavailable Unavailable Insurance Providers: All historical and current Section Date Range: From patient's date of to the date document was created. This section includes the names of all active insurance providers for the patient. Insurance Provider Type of Coverage Plan Name Start of Policy Coverage End of Policy Coverage Group Number Member ID Insurance Provider's Telephone Number Policy Ramirez's Name Patient's Relationship to Policy Ramirez [facility] (WNR) MEDICARE ADVANTAGE [facility] ([facility]) Mar 16, 2021 [id number] [phone] Jonathan LARSON PATIENT [facility] (WNR) MEDICARE ADVANTAGE [facility] ([facility]) Mar 16, 2018 [id number] [phone] Jonathan LARSON PATIENT MEDICARE (WNR) MEDICARE (M) PART B Jun 14, 2017 PART B [id number] [phone] Jonathan LARSON [place] PATIENT MEDICARE (WNR) MEDICARE (M) PART A Apr 16, 2012 PART A [id number] [phone] Jonathan LARSON PATIENT Selected Encounter This section includes the information on record at [place] for the Encounter. Date/Time Encounter Type Encounter Description Reason Provider Source Jul 06, 2023 03:00 PM OFFICE O/P EST HI 40 MIN PRIMARY CARE/MEDICINE ICD-10-CM Z00.01 Encounter for general adult medical exam w abnormal findings ARNOLDOBETTYTIFFANY H Lauren Encounter Template Text not used by [place] Assessments - Encounter Diagnoses This section includes the primary and secondary diagnoses documented for the Encounter. Date/Time Primary/Secondary Diagnosis Diagnosis Name Provider Source Jul 06, 2023 04:52 PM PRIMARY Encounter for general adult medical exam w abnormal findings [facility] Jul 06, 2023 04:52 PM SECONDARY Athscl heart disease of [place] coronary artery w/o ang pctrs [facility] Jul 06, 2023 04:52 PM SECONDARY Chronic kidney disease, stage 3 unspecified [facility] Jul 06, 2023 04:52 PM SECONDARY Essential (primary) hypertension [facility] Jul 06, 2023 04:52 PM SECONDARY Nonrheumatic aortic (valve) stenosis [facility] Jul 06, 2023 04:52 PM SECONDARY Type 2 diabetes mellitus without complications [facility] Lab Results: +/- 30 days of the encounter This section includes the Chemistry and Hematology Lab Results on record with [place] for the patient. Radiology Reports and Pathology Reports are provided separately, in subsequent sections. Lab Results This section contains the Chemistry/Hematology Results that were resulted 30 days before or 30 daysafter the date of the Encounter. Date/Time Source Result Type Result - Unit Interpretation Reference Range Comment Jul 06, 2023 04:13 PM [facility] HEMOGLOBIN A1C Specimen Type: BLOOD Comment: Values obtained from A1C measurements can vary. For typical A1C assays, a reported value of 7.0 could actually be between 6.7 and 7.3 if measured by a reference method. A reported value of 9.0 could actually be between 8.7 and 9.3. Ref: http://www.ngs p.org/CAPdata. asp Ordering Provider: CLAY BRAVO Report Released Date/Time: Jul 06, 2023 03:59 PM Reporting Lab: [facility] [id number] Performing Lab: [facility] [id number] HEMOGLOBIN A1C 6.8 H 4.0-6.0 Jul 06, 2023 04:13 PM [facility] BASIC METABOLIC PANEL+MG Specimen Type: PLASMA No comment entered. Ordering Provider: CLAY BRAVO Report Released Date/Time: Jul 06, 2023 03:59 PM Reporting Lab: [facility] [address] [facility] [id number] Performing Lab: [facility] [address] [facility] [id number] CREATININE 2.1 mg/dL H 0.7-1.2 UREA NITROGEN 38 mg/dL H 8-26 GLUCOSE 157 mg/dL H 70-100 SODIUM 139 mmol/L 136-145 POTASSIUM 5.1 mmol/L 3.5-5.1 CHLORIDE 106 mmol/L 98-107 CO2 27 mmol/L 22-29 CALCIUM 9.4 mg/dL 8.4-10.2 MAGNESIUM 1.9 mg/dL 1.6-2.6 ANION GAP 6 mmol/L 5-15 .CREAT EGFR(CKD-EPI ) 32 L >60 Vital Signs: All taken on the encounter date This section contains inpatient and outpatient Vital Signs collected on the date of the Encounter. Date/Time Temperature Pulse Blood Pressure Respiratory Rate SP02 Pain Height Weight Body Mass Index Source Jul 06, 2023 04:01 PM 97.6 55 142/70 16 96 0 76 254 31 [facility] Jul 06, 2023 03:31 PM 52 154/77 92 [facility] Social History: Smoking Status (Most current) and Tobacco Use (All prior to encounter date) This section includes the most current, and the historical, smoking and tobacco- related health factors from the [place] facility where the Encounter took place. Current Smoking Status This section includes the most current smoking, or tobacco-related health factor, from the [place] facility where the Encounter took place. Date/Time Current Smoking Status Comment Yo barnes Jul 06, 2023 03:00 PM VA-TOBACCO NEVER USED [facility] Tobacco Use History This section includes a history of the smoking, or tobacco-related health factors, that were collected on or before the date of the Encounter. The data comes from the [place] facility where the Encounter took place. Date/Time Smoking Status/Tobacco Use Comment Brianne bishop Jun 25, 2022 02:00 PM VA-TOBACCO NEVER USED [facility] Jun 11, 2020 09:30 AM VA-TOBACCO NEVER USED [facility] May 31, 2018 10:03 AM VA-TOBACCO NEVER USED [facility] Apr 01, 2017 07:54 AM LIFETIME NON-TOBACCO USER [facility] Mar 05, 2016 03:11 PM LIFETIME NON-TOBACCO USER [facility] Feb 26, 2015 09:57 AM LIFETIME NON-TOBACCO USER [facility] Feb 20, 2014 09:52 AM LIFETIME NON-TOBACCO USER [facility] Feb 27, 2012 08:53 AM LIFETIME NON-TOBACCO USER [facility] Encounter Notes: All associated encounter notes This section contains the clinical notes associated to the Encounter. Date/Time Encounter Note(s) Provider Source Jul 06, 2023 04:01 PM INTERNAL MEDICINE OUTPATIENT NOTE: LOCAL TITLE: MEDICINE CLINIC NURSING NOTE STANDARD TITLE: INTERNAL MEDICINE OUTPATIENT NOTE DATE OF NOTE: JUL 06, 2023@16:01 ENTRY DATE: JUL 06, 2023@16:02:09 AUTHOR: DAVIS AN COSIGNER: URGENCY: STATUS: COMPLETED TYPE OF VISIT: Appointment Check In Type of appointment: In-person appointment REASON FOR VISIT: annual ALLERGIES: LISINOPRIL (Feb 27, 2012) VITAL SIGNS: Blood Pressure: 142/70 (07/06/2023 16:01) rechecked Pulse: 55 (07/06/2023 16:01) Respiration: 16 (07/06/2023 16:01) Temperature: 97.6 F [36.4 C] (07/06/2023 16:01) Weight: 254 lb [115.21 kg] (07/06/2023 16:01) Height: 76 in [193.0 cm] (07/06/2023 16:01) BMI: 31.0 O2 Sat: 96% (07/06/2023 16:01) Pain: 0 (07/06/2023 16:01) PAIN SCREEN: Patient is not having significant pain that they wish to discuss with their provider today. MEDICATION Over the Counter/Herbal Medications: The patient denies taking any outside medications or herbals. Suicide Screen: C-SSRS Screening [place] Suicide Severity Rating Scale (C-SSRS) screener 1. Over the past month, have you wished you were or wished you could go to sleep and not wake up? No 2. Over the past month, have you had any actual thoughts of killing yourself? No 3. Over the past month, have you been thinking about how you might do this? Response not required due to responses to other questions. 4. Over the past month, have you had these thoughts and had some intention of acting on them? Response not required due to responses to other questions. 5. Over the past month, have you started to work out or worked out the details of how to kill yourself? Response not required due to responses to other questions. 6. If yes, at any time in the past month did you intend to carry out this plan? Response not required due to responses to other questions. 7. In your lifetime, have you ever done anything, started to do anything, or prepared to do anything to end your life (for example, collected pills, obtained a gun, gave away valuables, went to the roof but didn't jump)? No 8. If YES, was this within the past 3 months? Response not required due to responses to other questions. Influenza Immunization: The patient declines to receive the recommended dose of seasonal influenza vaccine. Immunization: INFLUENZA, UNSPECIFIED FORMULATION Refusal Reason: PATIENT DECISION Patient refuses all immunization(s) in the FLU group Date Documented: 07/06/23 16:03 Depression Screening: Perform PHQ-2 A PHQ-2 screen was performed. The score was 0 which is a negative screen for depression. Over the past two weeks, how often have you been bothered by the following problems? 1. Little interest or pleasure in doing things Not at all 2. Feeling down, depressed, or hopeless Not at all Alcohol Use Screen (AUDIT-C): Alcohol Screen: SCREEN FOR ALCOHOL (AUDIT-C) An alcohol screening test (AUDIT-C) was negative (score=0). 1. How often did you have a drink containing alcohol in the past year? Consider a drink to be a 12 ounce can or bottle of regular beer, 8 ounces of malt liquor, a 5 ounce glass of table wine, or a 1.5 ounce shot of liquor (like scotch, gin, or vodka). Never 2. How many drinks containing alcohol did you have on a typical day when you were drinking in the past year? Response not required due to responses to other questions. 3. How often did you have six or more drinks on one occasion in the past year? Response not required due to responses to other questions. Tobacco Use Screening: The patient has never used tobacco. Homelessness/Food Insecurity Screen: In the past 2 months, have you been living in stable housing that you own, rent, or stay in as part of a household? Yes - Living in stable housing. Are you worried or concerned that in the next 2 months you may NOT have stable housing that you own, rent, or stay in as part of a household? No - Not worried about housing near future The [place] reports the following: Within the past 12 months, you worried whether your food would run out before you got money to buy more. Never true Within the past 12 months, the food you bought just didn't last and you didn't have money to get more. Never true Food Assistance Programs [facility] Food Assistance Programs [facility] Td / Tdap Immunization: The patient declines to receive the recommended dose of Td/Tdap vaccine. Immunization: TD(ADULT) UNSPECIFIED FORMULATION Refusal Reason: PATIENT DECISION Patient refuses all immunization(s) in the Td group Date Documented: 07/06/23 16:04 Herpes Zoster (Shingles) Vaccine: The patient declines to receive the recommended dose of zoster (shingles) vaccine. Immunization: ZOSTER RECOMBINANT Refusal Reason: PATIENT DECISION Patient refuses all immunization(s) in the ZOSTER group Date Documented: 07/06/23 16:04 glenis AN LPN Signed: 07/06/2023 16:05 DAVIS AN [facility] Jul 06, 2023 03:21 PM INTERNAL MEDICINE NOTE: LOCAL TITLE: MEDICINE CLINIC NOTE STANDARD TITLE: INTERNAL MEDICINE NOTE DATE OF NOTE: JUL 06, 2023@15:21 ENTRY DATE: JUL 06, 2023@15:21:33 AUTHOR: CLAY BRAVO EXP COSIGNER: URGENCY: STATUS: COMPLETED MEDICINE CLINIC NOTE Has ADDENDA RODRIGUE LARSON is a 78 year old MALE with the following chief complaint: annual exam, co-managed Nurse's Note Reviewed. Assessment and Plan: Mr. Larson is a 78 year old with a PMH significant for DM, HTN, HLD, CAD, aortic stenosis, and CKD (baseline creatinine 2) that presents to the clinic today for an annual exam. He is a co-managed and gets his primary care at [facility]. He also follows with cardiology at [facility] and podiatry at the [facility]. Discussed the importance of good BP control, statin therapy and follow up with PCP and specialty providers. # HTN BP in clinic 154/77 above goal <130/80mmHg. reports he takes his blood pressures at home and readings typical 120s-130s systolic. He is not currently on an antihypertensive. Discussed the importance of monitoring home blood pressure and following up with primary care provider if BP remains above goal. - Follow up with primary care provider in 2 weeks as scheduled - Continue to monitor home BP - Discussed when to seek care - Dash diet pattern, physical activity as tolerated, stress reduction # CAD # HLD reports he is no longer taking atorvastatin due to symptoms of muscle fatigue and low heart rate. States this was a decision made with his primary care provider. Discussed the risk of CVA or PA with history of CAD with PCI and DM, verbalizes understanding. - Consider high intensity statin - Encourage good BP control and to follow up with PCP and roll grinder operator - ASA 81 mg daily # CKD Baseline creatinine 2. Labs ordered today. - BMP - Avoid NSAIDs, encourage adequate hydration - Focus on good BP and blood sugar control # Moderate aortic stenosis Repeat echo completed 09/12/22 with EF 70-75%, and moderate aortic stenosis. denies any angina, dyspnea, or syncope. Per patient report roll grinder operator recommending to continue to monitor. - Follow up with roll grinder operator - Advised when to seek care # T2DM with nephropathy [place] reports last a1c 7% with his PCP. Continues to monitor blood sugar with continuous glucose monitor. Fasting blood sugars 130-140. Currently using 15 units of aspart TID and 30 units of glargine BID. PAVE exam completed in clinic today with severe neuropathy and 0% of sites detected. is following with outside pl sql developer. Advised on daily foot cares, and annual eye exam. - Continue with current regimen - Eye exam: completed 2 weeks ago - PAVE: completed today - A1c ordered - Offered diabetic footwear - declines - Not on statin or lenard/arb: consider # Health maintenance Recommend discussing follow up colonoscopy based on previous results with PCP. Offered immunizations (shingles, COVID, flu and TPAD) declined. Follow up for annual exam in one year or sooner as needed. HPI/ROS: RODRIGUE LARSON is a 78 year old with a PMH significant for DM, HTN, HLD, CAD, aortic stenosis, and CKD (baseline creatinine 2) that presents to the clinic today for an annual exam. He is a co-managed patient who sees a primary care provider at [facility]. Takes blood pressures at home typical readings 120s-130s/60s-70s. Heart rate typically 50s. Was taken off chlorthalidone previously due to symptomatic bradycardia. Saw a roll grinder operator last year at [facility] and patient reports they just plan to monitor his aortic stenosis. States his primary care physician in [place] took him off his statin medication and his symptoms of pain and low heart rate has improved. He is aware of the risks being off of his statin medication. Has a continuous glucose monitor, fasting about 130-140. Reports his last a1c about 4-5 months ago was 7. Injects 15 units with meals. And long acting 30 units twice per day. No open wounds on his feet. Does not wear diabetic foot wear or compression stockings. Last saw eye doctor two weeks ago. 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 10 point review of systems negative unless otherwise noted in the HPI. Past medical history/Active Problems: Active problems - Computerized Problem List is the source for the followin. Diabetes mellitus (SNOMED CT 97868122) - Dx: 1982 2. Obesity 3. Essential hypertension (SNOMED CT 23021394) 4. Hypercholesterolemia (SNOMED CT 11273532) 5. Coronary Artery Disease - coronary artery stent: 2008 6. Colonic Polyps - Last colonoscopy with no polyps: 2008 - colonoscopy 08/28: no polyps 7. Chronic kidney disease stage 3 - creatinine 1.81 in 01/2014 8. Exposure to potentially hazardous substance ([facility] [id number]) - Entered through [facility]/VISN23 [facility] Documentation Initiative EXAM: VS: Ht:76 in [193.0 cm] (07/06/2023 16:01) BMI/Wt:31.0/254 lb. [115.21 kg] (07/06/2023 16:01) RR:16 (07/06/2023 16:) Temp:97.6 F [36.4 C] (07/06/2023 16:01) HR:55 (07/06/2023 16:) BP:142/70 (07/06/2023 16:) General: alert, well appearing and in no apparent distress HEENT: Normocephalic. EOMI, PERRL. Neck supple, thyroid symmetric without nodules or masses Cardiovascular: Grade 3 systolic crescendo decrescendo murmur heard throughout Pulmonary: CTAB, no wheezes, rales or rhonchi and normal respiratory effort Abdomen: soft, nondistended, nontender and no aortic, renal or iliac artery bruits noted Neurologic: normal speech, alert and oriented x 4. Gait steady. Monofilament with 0% sites detected of bilateral feet. Extremities: No peripheral edema. Skin: Warm and dry. No open wounds or lesions Psychiatric: affect/mood normal, cooperative, normal judgment/insight Data/Labs: Pending Patient staffed with Dr. Gan Portions of this chart were created using voice recognition software. Please excuse any typographical errors and word substitutions. Education on Treatment Plan: Patient indicates readiness to learn, verbalizes understanding, agreement and satisfaction with the treatment plan. Denies further questions. Patient indicates readiness to learn and has been instructed on action, dose, frequency, and side effects of medications. Patient verbalizes understanding. The medication list above was reviewed with the patient at today's visit. I have indicated discrepancies under each medication that is not being taken as prescribed. I have updated the medicines under the med tab as appropriate. PAVE Foot Check: A complete foot check was completed at this encounter. VISUAL INSPECTION: Includes inspection for skin breaks, deformity, erythema, trauma, pallor on elevation, dependent rubor, nail deformities, extensive callus and pitting edema. Visual exam results: Abnormal Observations: Hammertoes PEDAL PULSES: Includes palpation of dorsalis and posterior tibial pulses and signs/symptoms of vascular compromise like pain, pallor, parasthesia or paralysis. Present (even if diminished) SENSORY CHECK: Includes 10 gram Monofilament ([place]) test of sensation. Intact (Greater than or equal to 80% of sites checked) Abnormal (Less than 80% of sites checked): Abnormal (decreased or absent sensation to monofilament): Comment: 0% detected HIGH-RISK: HIGH RISK INFORMATION PROVIDED: 1. Advised patient that extra depth footwear with soft molded inserts and braces may be required. 2. Advised patient not to walk barefoot. 3. Explained the importance of daily foot checks. 4. Stressed the importance of daily foot hygiene, including bathing, complete drying and thorough inspection for changes. The patient verbalized understanding and was offered a detailed handout on diabetic foot care. Patient being seen by an outside footwear factory worker Diabetic Eye Screening: Prior exam/eye care done elsewhere within past year (or within past two years if negative history of retinopathy): Diabetic retinal exam result: Unknown results of prior exam for Retinopathy Date: 2023 ? Exact date is unknown Medication Reconciliation: Education Evaluations *Was medication education provided for NEW medications or CHANGES to medications? (including medication name, dose, route, reason for use, and potential side effects). Yes. Verbal education was provided to patient/caregiver and patient/caregiver verbalized understanding. TERATOGENIC MED & CONTRACEPTION REVIEW (Optional)... MEDICATION RECONCILIATION Review Done: The medication list shown below was verified for accuracy and it includes all pending medications/active medications/all medications or discontinued within the last 90 days/all remote medications and non-VA medications. If a given category (i.e. remote meds) is not shown, that means that a patient doesn't have a medication(s) in that category. Allergies listed below were also reviewed/updated for accuracy. Allergies/ADR from [facility] may not display in CPRS. Use JLV MRT5 - Allergies/ADRs FACILITY ALLERGY/ADR -------- No Remote Allergy/ADR Data available for this patient [facility] LISINOPRIL Active and Recently Outpatient Medications (including Supplies): Issue Date Status Last Fill Active Outpatient Medications Refills Expiration 1) INSULIN,GLARGINE-YFGN 100UNIT/ML PEN 3ML ACTIVE Issu:05-26-23 Qty: 15 for 75 days Sig: INJECT 30 Refills: 3 Last:05-26-23 UNITS UNDER THE SKIN TWICE A DAY FOR Expr:05-26-24 DIABETES 2) NEEDLE,PEN 31G,8MM Qty: 200 for 40 days ACTIVE Issu:07-23-22 Sig: USE 1 NEEDLE DIRECTED *DISPOSE Refills: 9 Last:06-26-23 OF IN A HARD-PLASTIC CONTAINER WITH A Expr:07-24-23 SCREW-ON LID CONTACT GARBAGE HAULER FOR PROPER DISPOSAL Issue Date Status Last Fill Inactive Outpatient Medications Refills Expiration 1) INSULIN,ASPART(EQV-NOVLG)100UN/ ML FLXPEN Issu:06-25-22 Qty: 15 for 90 days Sig: INJECT 15 Refills: 2 Last:05-29-23 UNITS UNDER THE SKIN WITH EACH MEAL Expr:06-26-23 FOR DIABETES -INJECT IMMEDIATELY BEFORE MEAL -REFRIGERATE 2) INSULIN,GLARGINE 100 UNT/ML 3ML SOLOSTAR DISCONTINUED Issu:05-22-23 Qty: 15 for 75 days Sig: INJECT 30 (EDIT) Last:05-26-23 UNITS UNDER THE SKIN TWICE A DAY FOR Refills: 3 Expr:05-22-24 DIABETES 3) INSULIN,GLARGINE 100 UNT/ML 3ML SOLOSTAR DISCONTINUED Issu:06-25-22 Qty: 15 for 90 days Sig: INJECT 20 (EDIT) Last:06-30-22 UNITS UNDER THE SKIN TWICE A DAY FOR Refills: 3 Expr:06-26-23 DIABETES 4) INSULIN,GLARGINE 100 UNT/ML 3ML SOLOSTAR DISCONTINUED Issu:04-09-22 Qty: 20 for 60 days Sig: INJECT 40 Refills: 3 Last:04-09-22 UNITS UNDER THE SKIN TWICE A DAY FOR Expr:04-10-23 DIABETES Start Date Active Non-VA Medications Refills Expiration 1) Non-VA ASPIRIN 81MG EC TAB Si MG ACTIVE MOUTH EVERY DAY 2) Non-VA CHOLECALCIF 25MCG (D3-1,000UNIT) ACTIVE TAB SiUNIT MOUTH EVERY DAY 3) Non-VA FISH OIL 1000MG (500MG DHA/EPA) ACTIVE CAP SiMG MOUTH EVERY DAY 4) Non-VA MULTIVITAMIN CAP/TAB Si ACTIVE TABLET MOUTH EVERY DAY 5) Non-VA NITROGLYCERIN 0.4MG SL TAB Sig: ACTIVE 0.4 MG UNDER THE TONGUE NEEDED 11 Total Medications /elvie/ CLAY BRAVO NURSE PRACTITIONER RESIDENT Signed: 07/06/2023 16:52 Receipt Acknowledged By: 07/07/2023 15:12 /elvie/ Tiffany Gan MD Physician 07/07/2023 ADDENDUM STATUS: COMPLETED I have reviewed this patient's history (obtained by nurse practitioner [employer] trainee) and when appropriate, pertinent physical examination (obtained by [employer] trainee), laboratory, and radiologic or other diagnostic tests with the [employer] trainee evaluating this patient. I agree with the treatment plan as outlined. This plan was reviewed with the [employer] trainee on the date of the [employer] trainee's note. /elvie/ Tiffany Gan MD Physician Signed: 07/07/2023 15:12 CLAY BRAVO [facility]
--- OUTSIDE RECORDS SUMMARY | 2023-12-21 08:34 | XMS_ITS | Continuity of Care Document ---
Author Name [facility] Organization [facility] Care Team Providers Care Supply Chain Design Manager Name Role Phone [facility] Unavailable Unavailable Problems Combined list of problems from Department of Defense and Veterans Affairs facilities. It does not include entries that were removed or entered in error. Problem Status Onset Date Problem Type Date of Resolution Comments Source Exposure to potentially hazardous substance ([facility] [id number]) Active 024 Condition May 21, 2023 Entered By: BEBA GALE Comment: [facility] [facility] Documentation Initiative [facility] Chronic kidney disease stage 3 Active Condition Feb 20, 2014 Entered By: MOISE MONGE Comment: creatinine 1.81 in 01/2014 [facility] Colonic Polyps Active Condition Feb 132011 Entered By: MOISE MONGE Comment: Last colonoscopy with no polyps: 2014 Entered By: MOISE MONGE Comment: colonoscopy 08/28: no polyps [facility] Coronary artery disease (SNOMED CT 86144338) Active Condition Feb 27, 2012 Entered By: MOISE MONGE Comment: coronary artery stent: 2008 [facility] Diabetes mellitus (SNOMED CT 92396488) Active Condition Feb 27, 2012 Entered By: MOISE MONGE Comment: Dx: 1982 [facility] Essential hypertension (SNOMED CT 06292509) Active Condition [facility] Hypercholesterolemia (SNOMED CT 86048983) Active Condition [facility] Obesity Active Condition [facility] Rheumatic Fever Inactive Condition 04/01/2017 Feb 27, 2012 Entered By: MOISE MONGE Comment: age 5: no rheumatic heart disease [facility] Diagnosis: ICD-10-CM Z00.01 Encounter for general adult medical exam w abnormal findings Active Diagnosis [facility] Diagnosis: ICD-10-CM H90.3 Sensorineural hearing loss, bilateral Active Diagnosis [facility] Diagnosis: ICD-10-CM E11.9 Type 2 diabetes mellitus without complications Active Diagnosis [facility] Medications Combined list of outpatient medications from Department of Defense and Veterans Affairs facilities.Medications provided include 1) outpatient medications from the last 15 months, and 2) patient-reported medications. Medication Details Route Status Patient Instructions Prescription Expires Prescription Number Last Dispense Date Ordering Provider Order Date Order Qty Source ASPIRIN 81MG TAB,EC TAKE ONE TABLET BY MOUTH EVERY DAY ORAL ACTIVE SHY MONGE 2011 [facility] CHLORTHALID ONE 25MG TAB TAKE ONE TABLET BY MOUTH EVERY MORNING FOR BLOOD PRESSURE ORAL 01/02/2023 [id number] 3 Gwyn PAN P 2022 90 [facility] CHOLECALCIF DOC 25MCG (1,000UNIT) TAB TAKE ONE TABLET BY MOUTH EVERY DAY ORAL ACTIVE SHY MONGE 2011 [facility] FISH OIL 1000MG (500MG DHA/EPA) CAP,ORAL TAKE 1 CAPSULE BY MOUTH EVERY DAY ORAL ACTIVE SHY MONGE 2013 [facility] INSULIN,ASP ART,HUMAN (EQV-NOVOLO G) 100 UNIT/ML,FLE XPEN,3ML INJECT 15 UNITS UNDER THE SKIN WITH EACH MEAL FOR DIABETES -INJECT IMMEDIAT CARMINA BEFORE MEAL -REFRIGE RATE SUBCUT ANEOUS 06/26/2023 [id number] 4 Gwyn PAN P 2022 15 [facility] INSULIN,GLA RGINE,HUMAN 100 UNIT/ML INJ,SOLOSTA R,3ML INJECT 30 UNITS UNDER THE SKIN TWICE A DAY FOR DIABETES SUBCUT ANEOUS DISCONT INUED (EDIT) 05/22/2024 [id number] 4 CASSIDY SILVEIRA 2023 15 [facility] INSULIN,GLA RGINE-YFGN 100UNIT/ML INJ PEN,3ML INJECT 30 UNITS UNDER THE SKIN TWICE A DAY FOR DIABETES SUBCUT ANEOUS ACTIVE 05/26/2024 [id number] 4 CASSIDY SILVEIRA 2023 15 [facility] MULTIVITAMI NS CAP/TAB TAKE ONE TABLET BY MOUTH EVERY DAY ORAL ACTIVE SHY MONGE 2011 [facility] NITROGLYCER IN 0.4MG TAB,SUBLING UAL DISSOLVE ONE TABLET UNDER THE TONGUE PRN SUBLIN GUAL ACTIVE SHY MONGE 2011 [facility] Allergies, Adverse Reactions, Alerts Combined list of allergies from Department of Defense and Veterans Affairs facilities. It does not include entries that were removed or entered in error. Substance Category Reaction Severity Reaction type Status Date Reported Comments Source LISINOPRIL Propensity to adverse reactions to drug (finding) Cough active 2 [facility] Immunizations Combined list of available immunizations from the Department of Defense and Veterans Affairs facilities. Immunization Series Date Given Administered By Site Reaction Lot Number CVX Code Drug Qc Lab Technician Status Comments Source INFLUENZA, HIGH-DOSE, QUADRIVALENT 2021 197 complet ed [facility] INFLUENZA, UNSPECIFIED FORMULATION 2021 88 complet [facility] COVID-19 (Qool), MRNA, LNP-S, PF, 30 MCG/0.3 ML DOSE 3 2020 208 complet ed [facility] INFLUENZA, INJECTABLE, QUADRIVALENT, PRESERVATIVE FREE 2020 150 complet ed [facility] COVID-19 (Qool), MRNA, LNP-S, PF, 30 MCG/0.3 ML DOSE 2 2020 208 complet ed PFR; [id number]; 1 [facility] COVID-19 (Qool), MRNA, LNP-S, PF, 30 MCG/0.3 ML DOSE 1 2020 208 complet ed PFR; [id number]; 1 [facility] INFLUENZA, HIGH-DOSE, QUADRIVALENT 2019 197 complet ed [facility] INFLUENZA, UNSPECIFIED FORMULATION 2019 88 complet ed [facility] INFLUENZA, RECOMBINANT, QUADRIVALENT, INJECTABLE, PRESERVATIVE FREE 2018 185 complet ed [facility] INFLUENZA, HIGH DOSE SEASONAL 2017 135 complet ed [facility] INFLUENZA, HIGH DOSE SEASONAL 2016 135 complet ed [facility] INFLUENZA, HIGH DOSE SEASONAL 2016 135 complet ed [facility] INFLUENZA, HIGH DOSE SEASONAL 2015 135 complet ed [facility] INFLUENZA, SEASONAL, INJECTABLE 2015 141 complet ed [facility] PNEUMOCOCCAL CONJUGATE PCV 13 2015 133 complet ed [facility] PNEUMOCOCCAL CONJUGATE PCV 13 2014 133 complet ed [facility] INFLUENZA, HIGH DOSE SEASONAL 2014 135 complet ed [facility] PNEUMOCOCCAL POLYSACCHARID E PPV23 2014 33 complet ed [facility] INFLUENZA, HIGH DOSE SEASONAL 2014 135 complet ed [facility] INFLUENZA, HIGH DOSE SEASONAL 2013 135 complet ed [facility] INFLUENZA, UNSPECIFIED FORMULATION 2013 88 complet ed [facility] PNEUMOCOCCAL POLYSACCHARID E PPV23 2013 33 complet ed [facility] TDAP 2013 115 complet ed [facility] INFLUENZA, UNSPECIFIED FORMULATION 2012 88 complet ed [facility] PNEUMOCOCCAL POLYSACCHARID E PPV23 2012 33 complet ed [facility] INFLUENZA, SEASONAL, INJECTABLE 2011 141 complet ed [facility] INFLUENZA, UNSPECIFIED FORMULATION 2011 88 complet ed [facility] TD(ADULT) UNSPECIFIED FORMULATION 2011 139 complet ed [facility] TDAP 2011 115 complet ed [facility] INFLUENZA, SEASONAL, INJECTABLE 2010 141 complet ed [facility] INFLUENZA, SEASONAL, INJECTABLE 2009 141 complet ed [facility] HEP A, ADULT 2009 52 complet ed [facility] NOVEL INFLUENZA-H1N 1-09, ALL FORMULATIONS 2008 128 complet ed [facility] HEP A, ADULT 2008 52 complet ed [facility] ZOSTER LIVE 2008 121 complet ed [facility] INFLUENZA, SEASONAL, INJECTABLE 2007 141 complet ed [facility] ZOSTER LIVE 2007 121 complet ed [facility] INFLUENZA, SEASONAL, INJECTABLE 2006 141 complet ed [facility] PNEUMOCOCCAL POLYSACCHARID E PPV23 2006 33 complet ed [facility] TD (ADULT), 5 LF TETANUS TOXOID, PRESERVATIVE FREE, ADSORBED 2005 113 complet ed [facility] INFLUENZA, SEASONAL, INJECTABLE 2003 141 complet ed [facility] INFLUENZA, SEASONAL, INJECTABLE 2002 141 complet ed [facility] Results Combined list of recent chemistry, hematology and other laboratory results from Department of Defense and Veterans Affairs, ranging from 15 months to all on record, depending upon the facility. Order Name Results Value Reference Range Date Interpretation Specimen Comments Source HEMOGLOBI N A1C HEMOGLOBIN A1C/HEMOGLO BIN.TOTAL IN [...] 06, 2023 03:59 PM Reporting Lab: [facility] [id number] Performing Lab: [facility] [address] [facility] BASIC METABOLIC PANEL+MG CREATININE [MASS/VOLUM E] IN SERUM OR PLASMA 2.1 mg/dL 0.7 - 1.2 07/05 H Specimen Type: PLASMA No comment entered. Ordering Provider: KAN BRAVO Report Released Date/Time: Jul 06, 2023 03:59 PM Reporting Lab: [facility] [address] Performing Lab: [facility] [address] [facility] BASIC METABOLIC PANEL+MG UREA NITROGEN [MASS/VOLUM E] IN SERUM OR PLASMA 38 mg/dL 8 - 26 07/05 H Specimen Type: PLASMA No comment entered. Ordering Provider: KAN BRAVO Report Released Date/Time: Jul 06, 2023 03:59 PM Reporting Lab: [facility] [address] Performing Lab: [facility] [phone] [facility] BASIC METABOLIC PANEL+MG GLUCOSE [MASS/VOLUM E] IN SERUM OR PLASMA 157 mg/dL 70 - 100 07/05 H Specimen Type: PLASMA No comment entered. Ordering Provider: KAN BRAVO Report Released Date/Time: Jul 06, 2023 03:59 PM Reporting Lab: [facility] [address] Performing Lab: [facility] [phone] [place] [facility] BASIC METABOLIC PANEL+MG SODIUM [MOLES/VOLU ME] IN SERUM OR PLASMA 139 mmol/L 136 - 145 07/05 Specimen Type: PLASMA No comment entered. Ordering Provider: KAN BRAVO Report Released Date/Time: Jul 06, 2023 03:59 PM Reporting Lab: [facility] [address] Performing Lab: [facility] [address] [place] [facility] BASIC METABOLIC PANEL+MG POTASSIUM [MOLES/VOLU ME] IN SERUM OR PLASMA 5.1 mmol/L 3.5 - 5.1 07/05 Specimen Type: PLASMA No comment entered. Ordering Provider: KAN BRAVO Report Released Date/Time: Jul 06, 2023 03:59 PM Reporting Lab: [facility] [address] Performing Lab: [facility] [address] [place] [facility] BASIC METABOLIC PANEL+MG CHLORIDE [MOLES/VOLU ME] IN SERUM OR PLASMA 106 mmol/L 98 - 107 07/05 Specimen Type: PLASMA No comment entered. Ordering Provider: KAN BRAVO Report Released Date/Time: Jul 06, 2023 03:59 PM Reporting Lab: [facility] [address] Performing Lab: [facility] [address] [place] [facility] BASIC METABOLIC PANEL+MG CARBON DIOXIDE, TOTAL [MOLES/VOLU ME] IN SERUM OR PLASMA 27 mmol/L 22 - 29 07/05 Specimen Type: PLASMA No comment entered. Ordering Provider: KAN BRAVO R Report Released Date/Time: Jul 06, 2023 03:59 PM Reporting Lab: [facility] [address] Performing Lab: [facility] [address] [place] [facility] BASIC METABOLIC PANEL+MG CALCIUM [MASS/VOLUM E] IN SERUM OR PLASMA 9.4 mg/dL 8.4 - 10.2 07/05 Specimen Type: PLASMA No comment entered. Ordering Provider: KAN BRAVO Report Released Date/Time: Jul 06, 2023 03:59 PM Reporting Lab: [facility] [address] Performing Lab: [facility] [address] [place] [facility] BASIC METABOLIC PANEL+MG MAGNESIUM [MASS/VOLUM E] IN SERUM OR PLASMA 1.9 mg/dL 1.6 - 2.6 07/05 Specimen Type: PLASMA No comment entered. Ordering Provider: KAN BRAVO Report Released Date/Time: Jul 06, 2023 03:59 PM Reporting Lab: [facility] [address] Performing Lab: [facility] [address] [place] [facility] BASIC METABOLIC PANEL+MG ANION GAP IN SERUM OR PLASMA 6 mmol/L 5 - 15 07/05 Specimen Type: PLASMA No comment entered. Ordering Provider: KAN BRAVO Report Released Date/Time: Jul 06, 2023 03:59 PM Reporting Lab: [facility] [address] Performing Lab: [facility] [address] [place] [facility] BASIC METABOLIC PANEL+MG GLOMERULAR FILTRATION RATE/1.73 SQ M.PREDICTED [VOLUME RATE/AREA] IN SERUM, PLASMA OR BLOOD BY CREATININE- BASED FORMULA (CKD-EPI 2020) 32 60 07/05 L Specimen Type: PLASMA No comment entered. Ordering Provider: KAN BRAVO Report Released Date/Time: Jul 06, 2023 03:59 PM Reporting Lab: [facility] [address] Performing Lab: [facility] [address] [place] [facility] Vital Signs Combined list of inpatient and outpatient Vital Signs from Department of Defense and Veterans Affairs, ranging from 12 months to all on record, depending upon the facility. Vital Sign Value Date Comments Source SYSTOLIC BLOOD PRESSURE 154 07/06/2023 15:31:08 [facility] DIASTOLIC BLOOD PRESSURE 77 07/06/2023 15:31:08 [facility] PULSE OXIMETRY 92 07/06/2023 15:31:08 [facility] 07/06/2023 15:31:08 [facility] Encounters Combined list of: 1) Encounters from Department of [facility] Affairs facilities going back up to thelast 18 months. 2) Encounters from the Department of Defense facilities going back up to 280 months. Location Location Details Encounter Type Encounter Number Reason For Visit Attending Provider ADM Date DC Date Status Disposition Source [facility] Outpatient Encounter [id number] 06/25 [facility] [place] [facility] OFFICE O/P EST LOW 20-29 MIN [id number] Diagnos is: ICD-10- CM E11.9 Type 2 diabete s mellitu s without complic ations< br/> Lauren KATZ 06/25 [facility] CONFORMITY EVALUATION [id number] Diagnos is: ICD-10- CM H90.3 Sensori neural hearing loss, bilater al
DANDY PETERSON 07/23 [facility] [place] [facility] Outpatient Encounter [id number] 03/16 [facility] [place] [facility] Outpatient Encounter [id number] 05/12 [facility] [place] [facility] Outpatient Encounter [id number] 05/12 [facility] [place] [facility] Outpatient Encounter [id number] 05/20 [facility] [place] [facility] OFFICE O/P EST HI 40 MIN [id number] Diagnos is: ICD-10- CM Z00.01 Encount er for general adult medical exam w abnorma l finding s
Dion MCLAUGHLIN 07/05 [facility] Social History Combined list of available smoking, tobacco, and other social history from Department of Defense and Veterans Affairs facilities. Social History Type Response Date Comment Sour e Tobacco smoking status NHIS VA-TOBACCO NEVER USED 07/06/2023 GERRI Ashley [facility] History of tobacco use VA-TOBACCO NEVER USED 06/25/2022 [facility] History of tobacco use VA-TOBACCO NEVER USED 06/11/2020 [facility] History of tobacco use VA-TOBACCO NEVER USED 05/31/2018 [facility] History of tobacco use LIFETIME NON-TOBA TUBULAR PRODUCTS FABRICATOR USER 04/01/2017 [facility] History of tobacco use LIFETIME NON-TOBA TUBULAR PRODUCTS FABRICATOR USER 03/05/2016 [facility] History of tobacco use LIFETIME NON-TOBA TUBULAR PRODUCTS FABRICATOR USER 02/26/2015 [facility] History of tobacco use LIFETIME NON-TOBA TUBULAR PRODUCTS FABRICATOR USER 02/20/2014 [facility] History of tobacco use LIFETIME NON-TOBA TUBULAR PRODUCTS FABRICATOR USER 02/27/2012 [facility]
--- OUTSIDE RECORDS SUMMARY | 2023-12-21 08:34 | XMS_ITS | Encounter Summary ---
Author Name [facility] Organization [facility] Address [address] [place] [address] Care Team Providers Care Net Manager Name Role Phone CASSIDY SILVEIRA Primary Care [...] Ramirez's Name Patient's Relationship to Policy Ramirez [facility] (WNR) MEDICARE ADVANTAGE [facility] (WNR) Mar 16, 2021 [id number] [phone] Jonathan RAMIREZ [facility] (WNR) MEDICARE ADVANTAGE [facility] (WNR) Mar 16, 2018 [id number] [phone] Jonathan RAMIREZ PATIENT MEDICARE (WNR) MEDICARE (M) PART B Jun 14, 2017 PART B [id number] [phone] Jonathan RAMIREZ PATIENT MEDICARE (WNR) MEDICARE (M) PART A Apr 16, 2012 PART A [id number] [phone] Jonathan RAMIREZ PATIENT Selected Encounter This section includes the information on record at [place] for the Encounter. Date/Time Encounter Type Encounter Description Reason Pro vider Source May 12, 2023 09:19 AM Outpatient Encounter COMMUNITY CARE CONSULT I[facility] Encounter Template Text not used by [place] Plan of Treatment: Future Appointments (+ 6 months) and Future Tests (+/- 45 days) The Plan of Treatment section includes future care activities for the patient from all [facility] This section includes future appointments and future orders which are active, pending or scheduled. Future Appointments This section includes appointments that were scheduled to occur 6 months from the date of the Encounter, up to a maximum of 20 appointments. The data comes from all [place] treatment facilities. Appointment Date/Time Appointment Type Appointme nt Facility Name Jul 06, 2023 03:00 PM AMBULATORY - MEDICINE MEREDITH HOLDER [facility] Jul 06, 2023 04:15 PM AMBULATORY - NONE TENZIN ROJO [facility] Social History: Smoking Status (Most current) and Tobacco Use (All prior to encounter date) This section includes the most current, and the historical, smoking and tobacco- related health factors from the [place] facility where the Encounter took place. Current Smoking Status This section includes the most current smoking, or tobacco-related health factor, from the [place] facility where the Encounter took place. Date/Time Current Smoking Status Comment Yo ity Jun 25, 2022 02:00 PM VA-TOBACCO NEVER USED [facility] Tobacco Use History This section includes a history of the smoking, or tobacco-related health factors, that were collected on or before the date of the Encounter. The data comes from the [place] facility where the Encounter took place. Date/Time Smoking Status/Tobacco Use Comment F acility Jun 11, 2020 09:30 AM MS-TOBACCO NEVER USED [facility] May 31, 2018 10:03 AM VA-TOBACCO NEVER USED [facility] Apr 01, 2017 07:54 AM LIFETIME NON-TOBACCO USER [facility] Mar 05, 2016 03:11 PM LIFETIME NON-TOBACCO USER [facility] Feb 26, 2015 09:57 AM LIFETIME NON-TOBACCO USER [facility] Feb 20, 2014 09:52 AM LIFETIME NON-TOBACCO USER [facility] Feb 27, 2012 08:53 AM LIFETIME NON-TOBACCO USER [facility] Encounter Notes: All associated encounter notes This section contains the clinical notes associated to the Encounter. Date/Time Encounter Note(s) Provider Source May 12, 2023 09:19 AM PHARMACY NOTE: LOCAL TITLE: PHARMACY NON [place] CARE MEDICATIONS STANDARD TITLE: PHARMACY NOTE DATE OF NOTE: MAY 12, 2023@09:19 ENTRY DATE: MAY 12, 2023@09:19:53 AUTHOR: PERLA LOTT COSIGNER: URGENCY: STATUS: COMPLETED [facility] RECEIVED electronic prescription(s) faxed from a NON-[place] Provider: KOJO VALENTIN MD Regarding Patient: RODRIGUE RAMIREZ Date of : Apr Regarding PRESCRIPTION(s) written on 05/11/2023 for: Medication(s): INSULIN ASPART 100UI/ML SQ PEN The Non-VA provider is not authorized to write prescription(s) through the [facility] pharmacy. The Prescription request has been redirected via FAX to [facility]. /elvie/ PERLA LOTT corporate director of pharmacy Signed: 05/12/2023 09:20 PERLA LOTT [facility]
--- OUTSIDE RECORDS SUMMARY | 2023-12-21 08:34 | XMS_ITS | Encounter Summary ---
Author Name [facility] Organization [facility] Address [address] [place] [address] Care Team Providers Care Oil Heat Technician Name Role Phone CASSIDY SILVEIRA Primary Care [...] Ramirez's Name Patient's Relationship to Policy Ramirez [facility] (WNR) MEDICARE ADVANTAGE [facility] (WNR) Mar 16, 2021 [id number] [phone] Jonathan RAMIREZ PATIENT [facility] (WNR) MEDICARE ADVANTAGE [facility] (WNR) Mar 16, 2018 [id number] [phone] Jonathan RAMIREZ PATIENT MEDICARE (WNR) MEDICARE (M) PART B Jun 14, 2017 PART B [id number] [phone] Jonathan RAMIREZ PATIENT MEDICARE (WNR) MEDICARE (M) PART A Apr 16, 2012 PART A [id number] [phone] Jonathan RAMIREZ PATIENT Selected Encounter This section includes the information on record at [place] for the Encounter. Date/Time Encounter Type Encounter Description Reason Pro vider Source May 12, 2023 09:01 AM Outpatient Encounter COMMUNITY CARE CONSULT IHE Encounter Template Text not used by [place] Plan of Treatment: Future Appointments (+ 6 months) and Future Tests (+/- 45 days) The Plan of Treatment section includes future care activities for the patient from all [place] [facility]. This section includes future appointments and future orders which are active, pending or scheduled. Future Appointments This section includes appointments that were scheduled to occur 6 months from the date of the Encounter, up to a maximum of 20 appointments. The data comes from all [place] treatment facilities. Appointment Date/Time Appointment Type Appointme nt Facility Name Jul 06, 2023 03:00 PM AMBULATORY - MEDICINE MEREDITH HOLDER [facility] Jul 06, 2023 04:15 PM AMBULATORY - NONE TENZIN ROJO [facility] Social History: Smoking Status (Most current) and Tobacco Use (All prior to encounter date) This section includes the most current, and the historical, smoking and tobacco- related health factors from the [place] facility where the Encounter took place. Current Smoking Status This section includes the most current smoking, or tobacco-related health factor, from the [place] facility where the Encounter took place. Date/Time Current Smoking Status Comment Yo itrosalie Jun 25, 2022 02:00 PM VA-TOBACCO NEVER USED [facility] Tobacco Use History This section includes a history of the smoking, or tobacco-related health factors, that were collected on or before the date of the Encounter. The data comes from the [place] facility where the Encounter took place. Date/Time Smoking Status/Tobacco Use Comment F acility Jun 11, 2020 09:30 AM VA-TOBACCO NEVER USED [facility] May 31, 2018 10:03 AM VA-TOBACCO NEVER USED [facility] Apr 01, 2017 07:54 AM LIFETIME NON-TOBACCO USER [facility] Mar 05, 2016 03:11 PM LIFETIME NON-TOBACCO USER [facility] Feb 26, 2015 09:57 AM LIFETIME NON-TOBACCO USER [facility] Feb 20, 2014 09:52 AM LIFETIME NON-TOBACCO USER [facility] Feb 27, 2012 08:53 AM LIFETIME NON-TOBACCO USER [facility] Encounter Notes: All associated encounter notes This section contains the clinical notes associated to the Encounter. Date/Time Encounter Note(s) Provider Source May 12, 2023 09:01 AM PHARMACY NOTE: LOCAL TITLE: PHARMACY NON [place] CARE MEDICATIONS STANDARD TITLE: PHARMACY NOTE DATE OF NOTE: MAY 12, 2023@09:01 ENTRY DATE: MAY 12, 2023@09:01:30 AUTHOR: RICHAR WARNER COSIGNER: URGENCY: STATUS: [facility] RECEIVED electronic prescription(s) (eRX(s))from NON- [facility] Provider: KOJO VALENTIN Date eRX received: Apr The outside (NON-[facility]) provider is not authorized to write for prescription(s) through [place] pharmacy at this time. Prescription request REDIRECTED via FAX to [facility] department eRx Prescription Information: INSULIN GALRGINE 100U/ML PEN - 30 UNITS QDAY /es/ RICHAR WARNER Pharmacist Signed: 05/12/2023 09:02 RICHAR WARNER [facility]
--- OUTSIDE RECORDS SUMMARY | 2023-12-21 08:34 | XMS_ITS | Clinical Summary ---
Author Organization [facility] Address [place], [place] [address] Care Team Providers Care Director Weights And Measures Name Role Phone Dat Arredondo MD Primary [...] ronary atherosclerosis of unspecified type of vessel, osage or graft Place 1 tablet under the [...] every morning. 93 tablet 3 09/08/2014 Active amLODIPine (Norvasc) 5 mg tabletIndications:HT N (hypertension) Take 1 Tablet (5 mg) by mouth once daily. 90 Tablet 4 10/22/2023 Active Active Problems Problem Noted Date Diagnosed Date Diabetes mellitus, type 2 01/26/2014 Erectile dysfunction 01/26/2014 Hyperlipidemia 01/26/2014 CKD (chronic kidney disease) stage 3, GFR 30-59 ml/min 11/05/2012 Obesity, unspecified 01/03/2011 Skin tags 05/02/2010 Personal history of colonic polyps 12/08/2008 Overview (05/19/2014): Colonoscopy 11/2008 normal repeat in 5 years Colonoscopy 05/2014 polyp repeat in 5 years Coronary atherosclerosis of unspecified type of vessel, osage or graft 01/14/2007 Overview (01/14/2007): 01/13/2007 Successful stenting of the mid LAD with TAXUS HAIM recommend Plavix for 2 years Unspecified essential hypertension 10/22/2006 Resolved Problems Problem Noted Date Diagnosed Date Resolved Date Lipoma of other skin and subcutaneous tissue 1 11/05/2012 Morbid obesity 01/13/2007 01/03/2011 Family history of ischemic heart disease 01/13/2007 01/03/2011 Overview (01/13/2007): Father [place] Routine general medical exam ination at a health care facility 12/22/2006 09/19/2010 Overview (01/13/2008): colonoscopy 07/2005 Recheck 3 yrs Mixed hyperlipidemia 12/22/2006 014 Impotence of organic origin 12/22/2006 01/26/2014 DIABETES 02/04/2002 01/26/2014 Overview (10/22/2006): Dx 1981 Encounters Date Type Department Care Team Description 10/22/2023 2:00 PM CDT Office Visit 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 Plan of Treatment Upcoming Encounters Date Type Department Care Team (Late st Contact Info) Description 12/21/2023 9:00 AM CDT Ancillary Procedure [facility] [address] [address] Health Maintenance Due Date Last Done Comments Depression screening for age 12+ 1959 BMI (ht and wt on same day) for age 18+ 1965 Hepatitis C screening for ag e 18-79 1965 Zoster (shingles) series for age 50+ (2 of 3) 09/07/2008 07/13/2008 Medicare Wellness for age 65+ 2012 Pneumococcal series for age 65+ (2 of 2 - PCV) 08/05/2014 08/05/2013, 12/22/2006 RSV vaccine for adults or (1 - 1-dose 75+ series) 2022 Tetanus booster 08/06/2023 08/05/2013, 07/15/2005 COVID-19 vaccine series (2 - 2023- season) 2023 01/31/2021 Influenza for age 65+ 11/15/2023 01/16/2014 , 12/09/2011, 12/23/2010, Additional history exists Tdap Completed 08/05/2013 Advance Directives * Full Code (Latest Code Status on File) Date Activated Date Inactivated Comments 01/13/2007 9:17 AM 01/14/2007 1:21 PM Care Teams Director Weights And Measures Relationship Specialty Start Date End Date Dat Arredondo MD [address] [facility] [place]ICK [id number] PCP - General Family Practice 12/20/20
== END 2023-12-21 08:31 | disposition home or self-care (01) ==
LOC: RAD 08:31
PROVIDERS: PCP Internal Medicine; Visit Provider Internal Medicine Cardiovascular Disease
DX: I35.0 Nonrheumatic aortic (valve) stenosis (principal); I51.7 Cardiomegaly; I34.0 Nonrheumatic mitral (valve) insufficiency
CPT/HCPCS: 93306

== ENCOUNTER 2024-03-28 07:53 | Outpatient (CLI) | payer MEDICARE, BC, SELFPAY ==
--- NOTE | 2024-03-28 08:15 | CRLHL7_ITS ---
For Patients: As a result of the Century Cures Act, medical imaging exams and procedure reports are released immediately into your electronic medical record. You may view this report before your referring provider. If you have questions, please contact your health care provider. CLINICAL HISTORY: Renal mass COMPARISON: CT 03/02/2024 TECHNIQUE: Caban scale and color Doppler images were acquired of the kidneys and urinary bladder. FINDINGS: Solid exophytic hypoechoic mass arising from the left kidney at the medial aspect measures 3.9 x 3.1 x 3.3 cm. Simple cyst left kidney measures 6 x 5 x 7 millimeters. Additional cyst left kidney measures 16 x 7 x 17 millimeters with an associated calcification. No hydronephrosis. Exophytic cyst arises from the upper pole of the right kidney measuring 13 x 10 x 7 millimeters. Echogenic stone in the right kidney is present measuring 13 x 5 x 9 millimeters. No hydronephrosis. Nonshadowing echogenic focus within the right kidney measures 10 x 6 x 10 millimeters. A similar lesion is also present measuring 17 x 11 x 17 millimeters. The right kidney measures 11.3cm in length and the left kidney measures 10.8cm in length. The renal cortex appears of normal thickness. The urinary bladder appears normal. Color Doppler images reveal a normal appearance of both ureteral jets. There is no evidence of bladder calculi or diverticula. IMPRESSION: Exophytic solid left renal mass measures 3.9 x 3.1 x 3.3 cm worrisome for renal cell carcinoma. Urology referral recommended. 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 Nonobstructing bilateral renal calculi. Dictated by Dat Silva MD @ 03/28/2024 11:54:46 AM (Electronically Signed)
== END 2024-03-28 07:54 | disposition home or self-care (01) ==
LOC: US 07:55
PROVIDERS: PCP Internal Medicine; Visit Provider Internal Medicine
DX: N28.89 Other specified disorders of kidney and ureter (principal); D17.71 Benign lipomatous neoplasm of kidney; N20.0 Calculus of kidney
CPT/HCPCS: 76770

== ENCOUNTER 2024-05-26 13:09 | Outpatient (CLI) | payer MEDICARE, BC, SELFPAY | END 2024-05-26 13:10 | disposition home or self-care (01) | LOC: NFLDREF 13:10 | PROVIDERS: PCP Internal Medicine; Visit Provider Internal Medicine | DX: E11.22 Type 2 diabetes mellitus with diabetic chronic kidney disease (principal); N18.30 Chronic kidney disease, stage 3 unspecified | CPT/HCPCS: 80048 ==

== ENCOUNTER 2024-06-13 12:42 | Outpatient (CLI) | payer MEDICARE, BC, SELFPAY | END 2024-06-13 12:43 | disposition home or self-care (01) | LOC: RAD 12:43 | PROVIDERS: PCP Internal Medicine; Visit Provider Physician Assistant Medical | DX: I35.0 Nonrheumatic aortic (valve) stenosis (principal); I35.1 Nonrheumatic aortic (valve) insufficiency | CPT/HCPCS: 93308; 93321; 93325 ==

== ENCOUNTER 2024-07-13 14:31 | Outpatient (CLI) | payer MEDICARE, BC, SELFPAY | END 2024-07-13 14:32 | disposition home or self-care (01) | LOC: NFLDREF 14:32 | PROVIDERS: PCP Internal Medicine; Visit Provider Internal Medicine | DX: R53.1 Weakness (principal) | CPT/HCPCS: 80048 ==